=== PATIENT | female | born 1980 | race Caucasian/White ===

== ENCOUNTER 2017-09-29 17:49 | Emergency (ER) | payer MEDICAID ==
[~2017-09-29] VITALS: Ht 162.6 cm; Wt 62.1 kg
[~2017-09-29 17:49] MED LIST: PRON INH
[2017-09-29 18:05] VITALS: BP 113/72
--- NOTE | 2017-09-29 18:28 | NUR ---
37/F BIB C/O HEAVY SENSATION TO [facility] X 10 AM TODAY---UNRELIEVED, UNPROVOKED. PT ADDS FEELS SHE IS UNABLE TO CAPTURE FULL DEEP BREATH---PARESTHESIA SURROUNDING LIPS , +NAUSEA. DENIES RECENT URI, FULL CLEAR SPEECH, NO RESP ACCESSORY MUSCLE USE NOTED. HX---ASTHMA. SKIN IS PINK/WARM/DRY; AAOX4 WITH EVEN AND STEADY GAIT; LUNGS CLEAR BL; HR EVEN AND REGULAR; PT DENIES ANY FEVER, SOB, OR COUGH AT THIS TIME; PATIENT STATES PAIN OF8/10 AT THIS TIME; VSS; PATIENT POSITIONED FOR COMFORT; HOB ELEVATED; BEDRAILS UP X2; BED DOWN. ER MD MADE AWARE OF PT STATUS.
--- NOTE | 2017-09-29 19:18 | NUR ---
Pt report given to CECI. Transfer of care at this time.
--- NOTE | 2017-09-29 20:12 | NUR ---
Dr. Al evaluating patient at bedside.
[2017-09-29] MEDS ORDERED: ACETAMINOPHEN EXTRA STRENGTH 500 MG TAB PO ONE (20:15)
[2017-09-29] MEDS ORDERED: IPRATROPIUM 0.02% 0.5 MG/2.5 ML NEBU INH ONE (20:15)
[2017-09-29] MEDS ORDERED: ALBUTEROL 0.083% 2.5 MG/3 ML NEBU INH ONE (20:15)
[2017-09-29] MEDS ORDERED: methylPREDNISolone SS 125 MG/2 ML VIAL IVP ONE (20:15)
--- NOTE | 2017-09-29 20:29 | NUR ---
Respiratory Therapist at bedside for respiratory intervention.
--- NOTE | 2017-09-29 20:50 | NUR ---
X-Ray at bedside.
[2017-09-29 20:57] LABS: APPEARANCE,URINE CLEAR (CLEAR); BILIRUBIN,URINE NEGATIVE (NEGATIVE); BLOOD, URINE NEGATIVE (NEGATIVE); COLOR,URINE YELLOW (YELLOW); LEUKOCYTE ESTERASE ,URINE NEGATIVE (NEGATIVE); NITRITE, URINE NEGATIVE (NEGATIVE); PH,URINE 5.5 (5.0-9.0); UGLUCOSE NEGATIVE (NEGATIVE)
[2017-09-29 21:05] LABS: BARBITURATE, URINE NEG. ng/ml (NEG <=200); BENZODIAZEPINE, URINE NEG. ng/mL (NEG <=200); CANNABINOID, URINE NEG. ng/mL (NEG <=50); COCAINE, URINE NEG. ng/mL (NEG <=300); OPIATE, URINE NEG. ng/mL (NEG <=2000); PHENCYCLIDINE SCREEN,URINE NEG. ng/mL (NEG <=25)
[2017-09-29 21:30] VITALS: BP 100/55
--- NOTE | 2017-09-29 21:30 | NUR ---
Patient discharged with v/s stable. Written and verbal after care instructions given and explained. Patient alert, oriented and verbalized understanding of instructions. Ambulatory with steady gait. All questions addressed prior to discharge. ID band removed. Patient advised to follow up with PMD. Rx of AZITHROMYCIN, ALBUTEROL, PREDNISONE given. Patient educated on indication of medication including possible reaction and side effects. Opportunity to ask questions provided and answered.
== END 2017-09-29 21:30 | disposition home or self-care (01) ==
LOC: MED 17:49
DX: J45.909 Unspecified asthma, uncomplicated (principal); R51 Headache; H53.8 Other visual disturbances
CPT/HCPCS: 36415; 71045; 80305; 81003; 84484; 85379; 93005; 94640; 96374; 99285; J2930; J7613; J7644

== ENCOUNTER 2018-04-20 08:07 | Emergency (ER) | payer MEDICAID ==
[~2018-04-20] VITALS: Ht 160 cm; Wt 61.2 kg
[2018-04-20 08:18] VITALS: BP 113/77
[2018-04-20] MEDS: DIAZEPAM 5 MG TAB PO ONE (08:52)
[2018-04-20] MEDS: KETOROLAC 30 MG/ML VIAL IM ONE (08:52)
[2018-04-20 09:18] VITALS: BP 113/77
== END 2018-04-20 09:20 | disposition home or self-care (01) ==
LOC: MED 08:07
DX: M54.5 Low back pain (principal); J45.909 Unspecified asthma, uncomplicated; Z79.899 Other long term (current) drug therapy; X50.0XXA Overexertion from strenuous movement or load, initial encounter; Y93.89 Activity, other specified; Y92.89 Other specified places as the place of occurrence of the external cause; Y99.8 Other external cause status; M79.604 Pain in right leg; M79.605 Pain in left leg
CPT/HCPCS: 96372; 99283; J1885

== ENCOUNTER 2018-11-21 08:47 | Emergency (ER) | payer MEDICAID ==
[~2018-11-21] VITALS: Ht 160 cm; Wt 62.7 kg
[2018-11-21 08:58] VITALS: BP 103/69
--- NOTE | 2018-11-21 09:05 | NUR ---
BIB SIGNIFICANT OTHER. AAO X4 C/O N/V/D AND EPIGASTRIC/BILATERAL UPPER QUADRANT ABD PAIN, VOMITED X 7 AND DIARRHEA X 3 SINCE THIS AM. PT DENIES BLOOD IN EMESIS/STOOL. PT STATES NO URINARY COMPLAINTS. PT STATES NO FEVER. PT TOOK ALKASELTZER THIS MORNING AND THREW IT UP. LAST FOOD TAKEN YESTERDAY LATE AFTERNOON. PT ABDOMEN SOFT AND FLAT. HOB UP. BED SIDE RAILS UP X1. ON LOW BED POSITION, LOCKED. ER TO EVALUATE PT .
--- NOTE | 2018-11-21 09:05 | NUR ---
Patient ambulated to bed 6. RN evaluating patient at bedside.
--- NOTE | 2018-11-21 09:40 | NUR ---
Dr. Baeza evaluating patient at bedside.
[2018-11-21] MEDS ORDERED: NACL 0.9% 1,000 ML IV SCH (09:42)
[2018-11-21] MEDS ORDERED: DIPHENOXYLATE /ATROPINE 2.5 MG TAB PO ONE (09:45)
[2018-11-21] MEDS ORDERED: ONDANSETRON 4 MG/2 ML VIAL IVP ONE ×2 (09:45→10:55)
--- NOTE | 2018-11-21 09:50 | NUR ---
SQL MANAGER AT BEDSIDE FOR BLOOD DRAW ORDERED
[2018-11-21 10:10] LABS: HEMATOCRIT 42.2 % (36-48); HEMOGLOBIN 13.8 g/dL (12.0-16.0); MEAN CORPUSCULAR HEMOGLOBIN 28 pg (27-31); MEAN CORPUSCULAR HGB CONC 33 g/dL (33-37); MEAN CORPUSCULAR VOLUME 86.1 fL (80-94); PLATELET COUNT (AUTO) 222 K/uL (140-450); RED CELL DISTRIBUTION WIDTH 15.1 % (11.6-13.7); WHITE BLOOD COUNT (AUTO) 12.6 K/uL (4.8-10.8)
--- NOTE | 2018-11-21 10:15 | NUR ---
PT LAYING DOWN. ACTING AND CONVERSATING APPROPRIATELY. PT STATES SHE IS VERY SLEEPY AND SHE FEELS BETTER AFTER THE MEDICATION. PT WAS GIVEN BLANKETS AND LIGHTS WERE DIMMED FOR COMFORT. WILL CONTINUE TO MONITOR.
[2018-11-21 10:17] LABS: ANION GAP 14.8 (8-16); CARBON DIOXIDE 25.8 mmol/L (21-32); CREATININE 0.8 mg/dL (0.6-1.3); POTASSIUM 3.6 mmol/L (3.5-5.1)
[2018-11-21 10:25] LABS: EOSINOPHILS % (MANUAL) 1 % (0-4); LYMPHOCYTES % (MANUAL) 5 % (20-46); MONOCYTES % (MANUAL) 3 % (5-12)
[2018-11-21 10:33] LABS: ALBUMIN 4.3 g/dL (3.4-5.0); TOTAL BILIRUBIN 0.6 mg/dL (0.0-1.0)
--- NOTE | 2018-11-21 10:42 | NUR ---
PT ASLEEP. EASILY AROUSABLE BY VOICE. AAO X 4, FULL CLEAR SPEECH. NO SIGNS AND SYMPTOMS OF DISTRESS NOTED. WILL CONTINUE TO MONITOR.
--- NOTE | 2018-11-21 10:51 | NUR ---
DR MOSLEY AT BEDSIDE FOR PT RE EVALUATION
--- NOTE | 2018-11-21 10:56 | NUR ---
Dr. Baeza re-evaluating patient at bedside.
--- NOTE | 2018-11-21 11:10 | NUR ---
DR MOSLEY AT BEDSIDE FOR ULTRASOUND EXAM OF THE ABDOMEN
--- NOTE | 2018-11-21 11:20 | NUR ---
RAISED ERYTHEMA NOTED TO LEFT ARM. PT DENIES SOB AND ITCHINESS. DR MOSLEY MADE AWARE.
[2018-11-21] MEDS ORDERED: diphenhydrAMINE 50 MG/ML VIAL IVP ONE (11:25)
--- NOTE | 2018-11-21 11:30 | NUR ---
ADMINISTERED BENADRYL ORDERED. PT TOLERATED WELL. PT AAO X4, FULL CLEAR SPEECH. CONVERSATING AND ACTING APPROPRIATELY. NO SIGNS AND SYMPTOMS OF DISTRESS NOTED.
--- NOTE | 2018-11-21 11:43 | NUR ---
PT AMBULATED TO THE BATHROOM WITH STEADY GAIT.
--- NOTE | 2018-11-21 11:44 | NUR ---
PT AMBULATED BACK TO BED WITH STEADY GAIT.
--- NOTE | 2018-11-21 11:49 | NUR ---
NO RAISED ERYTHEMA NOTED LEFT FOREARM. PT DENIES SOB, ITCHINESS TO THE SITE. NO SIGNS AND SYMPTOMS OF DISTRESS NOTED.
[2018-11-21 11:50] VITALS: BP 102/62
--- NOTE | 2018-11-21 11:50 | NUR ---
Patient discharged with v/s stable. Written and verbal after care instructions given and explained. Patient alert, oriented and verbalized understanding of instructions. Ambulatory with steady gait. All questions addressed prior to discharge. ID band removed. Patient advised to follow up with PMD. Rx of LOMOTIL, ZOFRAN ODT given. Patient educated on indication of medication including possible reaction and side effects. Opportunity to ask questions provided and answered.
== END 2018-11-21 11:50 | disposition home or self-care (01) ==
LOC: MED 08:47
DX: R11.2 Nausea with vomiting, unspecified (principal); R19.7 Diarrhea, unspecified; J45.909 Unspecified asthma, uncomplicated; Z98.890 Other specified postprocedural states
CPT/HCPCS: 36415; 80053; 81002; 81025; 83690; 85025; 96361; 96374; 96375; 99283; J2405; J7030; Q0163

== ENCOUNTER 2021-05-31 19:28 | Emergency (ER) | payer MEDICAID ==
[~2021-05-31] VITALS: Ht 162.6 cm; Wt 63.5 kg
[2021-05-31 19:30] VITALS: BP 105/72
--- NOTE | 2021-05-31 19:30 | NUR ---
TO BED VIA W/C
[2021-05-31] MEDS ORDERED: IBUPROFEN 600 MG TAB PO ONE (19:55)
--- NOTE | 2021-05-31 20:11 | NUR ---
X-Ray at bedside.
[2021-05-31] MEDS ORDERED: IBUP-2213 PO (21:20)
[2021-05-31 21:30] VITALS: BP 129/61
--- NOTE | 2021-05-31 21:30 | NUR ---
d/c with VSS. d/c education given. opportunity to ask questions given and answered. rx of motrin given.
== END 2021-05-31 21:30 | disposition home or self-care (01) ==
LOC: MED 19:28
DX: S51.011A Laceration without foreign body of right elbow, initial encounter (principal); S93.401A Sprain of unspecified ligament of right ankle, initial encounter; S90.31XA Contusion of right foot, initial encounter; J45.909 Unspecified asthma, uncomplicated; Z79.899 Other long term (current) drug therapy; W10.9XXA Fall (on) (from) unspecified stairs and steps, initial encounter; Y93.89 Activity, other specified; Y92.89 Other specified places as the place of occurrence of the external cause; Y99.8 Other external cause status
CPT/HCPCS: 73610; 73630; 81025; 90471; 90715; 99284; Q0092

== ENCOUNTER 2022-04-19 13:07 | Emergency (ER) | payer MEDICAID ==
[~2022-04-19] VITALS: Ht 160 cm; Wt 70.8 kg
[~2022-04-19 13:07] MED LIST changes: +IBUP-2213 PO; -PRON INH
[2022-04-19 13:14] VITALS: BP 113/71
--- NOTE | 2022-04-19 13:15 | NUR ---
41F PRESENTS TO ED WITH C/O SORE THROAT, COUGH, R EARACHE AND FATIGUE X2DAYS. PT DENIES PAIN, FEVERS, N/V/D; DENIES PAIN OR USE OF MEDICATION.
--- NOTE | 2022-04-19 13:26 | NUR ---
SWABS COLLECTED AND WALKED TO LAB.
[2022-04-19] MEDS ORDERED: PROM118S5 PO (13:28)
[2022-04-19] MEDS ORDERED: ALBU0.0912 IH (13:28)
[2022-04-19] MEDS ORDERED: IBUP-2213 PO (13:28)
--- NOTE | 2022-04-19 13:45 | NUR ---
Patient discharged with v/s stable. Written and verbal after care instructions ABOUT UPPER RESPIRATORY INFECTION given and explained. Patient alert, oriented and verbalized understanding of instructions. Ambulatory with steady gait. All questions addressed prior to discharge. ID band removed. Patient advised to follow up with PMD. Rx of ALBUEROL, MOTRIN, PROMETHAZINE DM given. Patient educated on indication of medication including possible reaction and side effects. Opportunity to ask questions provided and answered.
== END 2022-04-19 13:41 | disposition home or self-care (01) ==
LOC: MED 13:07
DX: J06.9 Acute upper respiratory infection, unspecified (principal); Z20.822 Contact with and (suspected) exposure to COVID-19; J45.909 Unspecified asthma, uncomplicated
CPT/HCPCS: 87081; 99283

== ENCOUNTER 2022-07-08 02:15 | Emergency (ER) | payer MEDICAID ==
[~2022-07-08] VITALS: Ht 160 cm; Wt 65.8 kg
[~2022-07-08 02:15] MED LIST changes: +ALBU0.0912 IH; +PROM118S5 PO
[2022-07-08 02:22] VITALS: BP 105/81
--- NOTE | 2022-07-08 02:27 | NUR ---
PT TO BED 08.
--- NOTE | 2022-07-08 02:31 | NUR ---
LUIS FERNANDO ORTIZ AT BEDSIDE.
[2022-07-08] MEDS ORDERED: NIRM1TAB PO (02:37)
[2022-07-08] MEDS ORDERED: IBUP-2213 PO (02:37)
--- NOTE | 2022-07-08 02:39 | NUR ---
PT SWABBED AND TAKEN TO LAB.
[2022-07-08] MEDS ORDERED: IBUPROFEN 600 MG TAB PO ONE (02:40)
[2022-07-08] MEDS ORDERED: ACETAMINOPHEN EXTRA STRENGTH 500 MG TAB PO ONE (02:40)
[2022-07-08] MEDS ORDERED: NACL 0.9% 1,000 ML IV ONE (02:40)
--- NOTE | 2022-07-08 03:06 | NUR ---
labs drawn at bedside
[2022-07-08 03:08] LABS: BASOPHILS % (AUTO) 0.5 % (0.0-2.0); EOSINOPHILS # (AUTO) 0.1 K/uL (0-0.4); EOSINOPHILS % (AUTO) 0.8 % (0.0-4.0); HEMATOCRIT 37.8 % (36-48); HEMOGLOBIN 12.7 g/dL (12.0-16.0); LYMPHOCYTES # (AUTO) 0.5 K/uL (2.5-16.5); LYMPHOCYTES % (AUTO) 5.7 % (20.5-51.1); MEAN CORPUSCULAR HEMOGLOBIN 30 pg (27-31); MEAN CORPUSCULAR HGB CONC 34 g/dL (33-37); MEAN CORPUSCULAR VOLUME 87.9 fL (80-94); MONOCYTES # (AUTO) 0.6 K/uL (0.8-1.0); MONOCYTES % (AUTO) 7.4 % (1.7-9.3); NEUTROPHILS # (AUTO) 7.4 K/uL (1.8-7.7); NEUTROPHILS % (AUTO) 85.6 % (42.2-75.2); PLATELET COUNT (AUTO) 215 K/uL (140-450); RED CELL DISTRIBUTION WIDTH 14.3 % (11.6-13.7); WHITE BLOOD COUNT (AUTO) 8.6 K/uL (4.8-10.8)
[2022-07-08 03:21] LABS: ALBUMIN 3.8 g/dL (3.4-5.0); ANION GAP 13.7 (8-16); CARBON DIOXIDE 26.2 mmol/L (21-32); CREATININE 0.8 mg/dL (0.6-1.3); POTASSIUM 3.9 mmol/L (3.5-5.1); TOTAL BILIRUBIN 0.4 mg/dL (0.0-1.0)
[2022-07-08 03:32] VITALS: BP 105/81
--- NOTE | 2022-07-08 03:32 | NUR ---
Patient discharged with v/s stable. Written and verbal after care instructions given and explained. Patient alert, oriented and verbalized understanding of instructions. Ambulatory with steady gait. All questions addressed prior to discharge. ID band removed. Patient advised to follow up with PMD. Rx of ibuprofen and paxlovid given. Patient educated on indication of medication including possible reaction and side effects. Opportunity to ask questions provided and answered.
== END 2022-07-08 03:32 | disposition home or self-care (01) ==
LOC: MED 02:15
DX: U07.1 COVID-19 (principal); J12.82 Pneumonia due to coronavirus disease 2019; J45.909 Unspecified asthma, uncomplicated; Z79.899 Other long term (current) drug therapy; Z79.1 Long term (current) use of non-steroidal anti-inflammatories (NSAID)
CPT/HCPCS: 36415; 80053; 85025; 87426; 96360; 99283; J7030

== ENCOUNTER 2023-08-14 22:56 | Emergency (ER) | payer OTHER, MEDICAID ==
[~2023-08-14] VITALS: Ht 160 cm; Wt 68.0 kg
[~2023-08-14 22:56] MED LIST changes: +NIRM1TAB PO
[2023-08-14 23:05] VITALS: BP 142/100; PULSE 152; RESP 24; TEMP 97.6; O2SAT 98
[2023-08-14] MEDS: NACL 0.9% 1,000 ML IV ONE (23:27)
[2023-08-14] MEDS: HYDROmorphone PFS 2 MG/ML SYR IVP ONE (23:27)
[2023-08-15] MEDS: diphenhydrAMINE 50 MG/ML VIAL IVP ONE (00:30)
[2023-08-15] MEDS ORDERED: NAPR-337 PO (01:15)
[2023-08-15 01:52] VITALS: BP 126/68; PULSE 132; RESP 24; TEMP 97.6; O2SAT 97
== END 2023-08-15 01:52 | disposition home or self-care (01) ==
LOC: MED 22:56
DX: S70.12XA Contusion of left thigh, initial encounter (principal); S70.11XA Contusion of right thigh, initial encounter; S37.892A Contusion of other urinary and pelvic organ, initial encounter; V03.10XA Pedestrian on foot injured in collision with car, pick-up truck or van in traffic accident, initial encounter; J45.909 Unspecified asthma, uncomplicated; Z79.899 Other long term (current) drug therapy; Y93.89 Activity, other specified; Y92.89 Other specified places as the place of occurrence of the external cause; Y99.8 Other external cause status
CPT/HCPCS: 73552; 73610; 73660; 74177; 96361; 96374; 96375; 99285; J1170; J1200; J7030; Q9967

== ENCOUNTER 2023-09-15 13:09 | Emergency (ER) | payer MEDICAID, OTHER ==
[~2023-09-15] VITALS: Ht 160 cm; Wt 68.0 kg
[~2023-09-15 13:09] MED LIST changes: +NAPR-337 PO
[2023-09-15 13:22] VITALS: BP 120/81; PULSE 79; RESP 18; TEMP 98.6; O2SAT 100
[2023-09-15] MEDS: NACL 0.9% 1,000 ML IV SCH (14:08)
[2023-09-15] MEDS: ONDANSETRON 4 MG/2 ML VIAL IVP ONE (14:09)
[2023-09-15] MEDS: FAMOTIDINE 20 MG/2 ML VIAL IVP ONE (14:10)
[2023-09-15 14:14] LABS: BASOPHILS # (AUTO) 0.1 K/uL (0.00-0.22); BASOPHILS % (AUTO) 0.7 % (0.0-2.0); EOSINOPHILS % (AUTO) 0.4 % (0.0-4.0); HEMATOCRIT 39.6 % (36-48); HEMOGLOBIN 13.4 g/dL (12.0-16.0); LYMPHOCYTES # (AUTO) 1.8 K/uL (2.5-16.5); LYMPHOCYTES % (AUTO) 20.3 % (20.5-51.1); MEAN CORPUSCULAR HEMOGLOBIN 30 pg (27-31); MEAN CORPUSCULAR HGB CONC 34 g/dL (33-37); MEAN CORPUSCULAR VOLUME 88.6 fL (80-94); MONOCYTES # (AUTO) 0.5 K/uL (0.8-1.0); MONOCYTES % (AUTO) 5.4 % (1.7-9.3); NEUTROPHILS # (AUTO) 6.4 K/uL (1.8-7.7); NEUTROPHILS % (AUTO) 73.2 % (42.2-75.2); PLATELET COUNT (AUTO) 249 K/uL (140-450); RED BLOOD CELL COUNT(AUTO) 4.47 MIL/uL (4.20-5.40); RED CELL DISTRIBUTION WIDTH 14.5 % (11.6-13.7); WHITE BLOOD COUNT (AUTO) 8.8 K/uL (4.8-10.8)
[2023-09-15 14:16] LABS: APPEARANCE,URINE CLEAR (CLEAR); BILIRUBIN,URINE 1+ (NEGATIVE); BLOOD, URINE 3+ (NEGATIVE); COLOR,URINE YELLOW (YELLOW); LEUKOCYTE ESTERASE ,URINE NEGATIVE (NEGATIVE); NITRITE, URINE NEGATIVE (NEGATIVE); PH,URINE 6.5 (5.0-9.0); PROTEIN,URINE 2+ (NEGATIVE); UGLUCOSE NEGATIVE (NEGATIVE)
[2023-09-15 14:23] LABS: ANION GAP 16.9 (8-16); CALCIUM 8.6 mg/dL (8.5-10.1); CARBON DIOXIDE 22.4 mmol/L (21-32); CREATININE 0.7 mg/dL (0.6-1.3); POTASSIUM 3.3 mmol/L (3.5-5.1)
[2023-09-15 14:26] LABS: BACTERIA,URINE >30 (MANY) /HPF (None Seen); ICTOTEST NEGATIVE (NEGATIVE); MUCUS,URINE 3+ /LPF (None Seen); RBC,URINE 0-5 /HPF (0-5); SQUAMOUS EPITHELIAL CELL,UR >10 (MANY) /LPF (0-3 (FEW)); WBC,URINE 0-5 /HPF (0-5)
[2023-09-15] MEDS ORDERED: ONDA-188 PO (14:50)
[2023-09-15] MEDS ORDERED: FAMO-92 PO (14:51)
[2023-09-15 16:09] LABS: ALBUMIN 3.8 g/dL (3.4-5.0); BILIRUBIN,DIRECT 0.2 mg/dL (0.0-0.3); TOTAL BILIRUBIN 0.8 mg/dL (0.0-1.0); TOTAL PROTEIN, SERUM 7.4 g/dL (6.4-8.2)
[2023-09-15] MEDS: KETOROLAC 30 MG/ML VIAL IVP ONE (16:10)
[2023-09-15] MEDS ORDERED: NITR100C7 PO (16:36)
[2023-09-15 16:46] VITALS: BP 104/63; PULSE 74; RESP 16; TEMP 98.5; O2SAT 98
== END 2023-09-15 16:45 | disposition home or self-care (01) ==
LOC: MED 13:09
DX: R11.10 Vomiting, unspecified (principal); Z79.899 Other long term (current) drug therapy; J45.909 Unspecified asthma, uncomplicated; R10.13 Epigastric pain
CPT/HCPCS: 36415; 80048; 80076; 81001; 81025; 83690; 85025; 87086; 96361; 96374; 96375; 99284; J1885; J2405; J3490; J7030